=== PATIENT | female | born 1995 | race Hispanic/Latino ===

== ENCOUNTER 2017-05-29 11:23 | Emergency (ER) | payer OTHER ==
[2017-05-29] MEDS ORDERED: Morphine 4 MG/ML VIAL ONE (11:52)
[2017-05-29] MEDS ORDERED: Adacel (T-DAP) 0.5 ML VIAL ONE (11:52)
[2017-05-29] MEDS ORDERED: Bacitracin Zinc 1 Packet ONE (12:52)
== END 2017-05-29 12:54 | disposition home or self-care (01) ==
LOC: ERS 11:23
DX: T22.111A Burn of first degree of right forearm, initial encounter (principal); T20.16XA Burn of first degree of forehead and cheek, initial encounter; X11.8XXA Contact with other hot tap-water, initial encounter
CPT/HCPCS: 16000; 90471; 90715; 96374; J2270